=== PATIENT | male | born 1965 | race Caucasian/White ===

== ENCOUNTER 2018-08-12 07:28 | Inpatient (IN) | payer SELFPAY ==
[~2018-08-12] VITALS: Ht 185.4 cm; Wt 97.1 kg
[2018-08-12] MEDS ORDERED: SODIUM CHLORIDE 0.9% 1,000 ML IV ONE (07:42)
[2018-08-12] MEDS ORDERED: ONDANSETRON HCL 4MG/2ML INJ IV STA (07:42)
[2018-08-12] MEDS ORDERED: FAMOTIDINE 20MG/2ML VIAL IV ONE (07:45)
[2018-08-12] MEDS ORDERED: LEVETIRACETAM 500MG PREMIX 100 ML IV ONE (08:00)
[2018-08-12] MEDS ORDERED: LEVETIRACETAM 500MG TABLET PO ONE (08:00)
[2018-08-12 08:05] LABS: EOSINOPHILS % 0.4 % (0.0-5.0); HEMATOCRIT. 45.6 % (42.0-52.0); HEMOGLOBIN. 15.5 g/dL (14.0-18.0); MEAN CORPUSCULAR HEMOGLOBIN 30.8 pg (28.0-32.0); MEAN CORPUSCULAR VOLUME 90.6 fL (80.0-94.0); MEAN PLATELET VOLUME 7.4 fl (7.4-10.4); MONOCYTES % 6.6 % (2.0-8.0); PLATELET 358 x1000/uL (130-400); RED BLOOD CELL COUNT 5.04 mill/uL (4.7-6.1); RED CELL DISTRIBUTION WIDTH 15.7 % (11.6-14.6)
[2018-08-12 08:11] LABS: INR 1.1; PARTIAL THROMBOPLASTIN TIME 21.7 sec (23.4-31.0); PROTHROMBIN TIME 10.7 sec (9.1-11.1)
[2018-08-12 08:14] LABS: CHLORIDE 94 mEq/L (98-107)
[2018-08-12] MEDS ORDERED: KETOROLAC 30MG/ML VIAL IV ONE (08:30)
[2018-08-12 08:37] LABS: ETHANOL BLOOD 207 mg/dL
[2018-08-12] MEDS ORDERED: LORAZEPAM 2MG/ML CPJ IV ONE (08:45)
[2018-08-12 10:50] LABS: CLARITY URINE CLEAR (CLEAR); COLOR URINE YELLOW (YELLOW); KETONES URINE NEGATIVE (NEGATIVE); LEUKOCYTE ESTERASE URINE NEGATIVE (NEGATIVE); NITRITE URINE NEGATIVE (NEGATIVE); OCCULT BLOOD URINE NEGATIVE (NEGATIVE); PROTEIN URINE TRACE (NEGATIVE); SPECIFIC GRAVITY URINE 1.011 (1.005-1.030); UROBILINOGEN URINE 0.2 E.U./dL (0.2-1.0)
[2018-08-12 11:00] LABS: *COCAINE SCREEN URINE NEGATIVE (NEGATIVE); METHADONE URINE SCREEN NEGATIVE (NEGATIVE); OPIATES URINE SCREEN NEGATIVE (NEGATIVE)
[2018-08-12 11:01] LABS: CANNABINOID URINE SCREEN PRESUMTIVE POSITIVE (NEGATIVE); PHENCYCLIDINE URINE SCREEN NEGATIVE (NEGATIVE)
[2018-08-12] MEDS ORDERED: DOCUSATE SODIUM 100MG CAPSULE PO PRN (11:15)
[2018-08-12] MEDS ORDERED: IPRATROPIUM/ALBUTEROL 0.5-3(2.5)MG/3ML NEB INH PRN (11:15)
[2018-08-12] MEDS ORDERED: GUAIFENESIN 200MG/10ML SUGAR FREE UDC PO PRN (11:15)
[2018-08-12] MEDS ORDERED: ACETAMINOPHEN 325MG TABLET PO PRN (11:15)
[2018-08-12] MEDS ORDERED: CLONIDINE 0.1MG TABLET PO PRN (11:15)
[2018-08-12] MEDS ORDERED: MAGNESIUM/ALUMINUM HYDROXIDE/SIMETHICONE 30ML UDC PO PRN (11:15)
[2018-08-12] MEDS ORDERED: HYDROCODONE/ACETAMINOPHEN 5/325MG TABLET PO PRN (11:15)
[2018-08-12] MEDS ORDERED: NA PHOS,M-B/NA PHOS,DI-BA ENEMA 118ML PR PRN (11:15)
[2018-08-12 11:17] LABS: *AMPHETAMINES SCREEN URINE NEGATIVE (NEGATIVE); *BARBITURATES SCREEN URINE NEGATIVE (NEGATIVE); *BENZODIAZEPINES SCREEN URINE PRESUMTIVE POSITIVE (NEGATIVE)
[2018-08-12 11:25] VITALS: BP 126/74
[2018-08-12 12:55] VITALS: BP 126/74
[2018-08-12] MEDS ORDERED: DEXTROSE 50% WATER 50ML SYRINGE IV PRN (13:15)
[2018-08-12] MEDS: INSULIN LISPRO 100 UNITS/ML SUBCUT SCH ×3 (13:30→21:00)
[2018-08-12] MEDS: ENOXAPARIN 40MG/0.4ML SYR SUBCUT SCH (13:30)
[2018-08-12] MEDS: BLOOD SUGAR DIAGNOSTIC STRIP TEST SCH ×3 (13:30→20:47)
[2018-08-12] MEDS ORDERED: MVI, ADULT NO.1 10 ML, FOLIC ACID 1 MG, THIAMINE HCL 100 MG in SODIUM CHLORIDE 0.9% 1,0... IV NR ×4 (14:30)
[2018-08-12 14:45] LABS: CHLORIDE 99 mEq/L (98-107)
[2018-08-12] MEDS: ONDANSETRON HCL 4MG/2ML INJ IV PRN (14:45)
[2018-08-12] MEDS: LORAZEPAM 2MG/ML CPJ IV PRN (14:46)
[2018-08-12 16:47] VITALS: BP 130/91
[2018-08-12] MEDS: DIPHENHYDRAMINE 50MG/ML VIAL IV PRN (17:21)
[2018-08-12] MEDS ORDERED: INSULIN LISPRO 100 UNITS/ML SUBCUT SCH (17:50)
[2018-08-12 20:21] VITALS: BP 156/75
[2018-08-12] MEDS: LEVETIRACETAM 500MG TABLET PO SCH (20:47)
[2018-08-12] MEDS ORDERED: INFLUENZA VIRUS VACCINE(AFLURIA) 0.5ML SYR IM ONE (21:00)
[2018-08-13] VITALS: BP 126/63
[2018-08-13 04:00] VITALS: BP 153/79
[2018-08-13] MEDS: LORAZEPAM 2MG/ML CPJ IV PRN ×5 (04:39→21:02)
[2018-08-13] MEDS: BLOOD SUGAR DIAGNOSTIC STRIP TEST SCH ×3 (06:21→21:15)
[2018-08-13] MEDS: DEXT 5%/0.45% NACL 1000ML 1,000 ML IV SCH ×2 (07:29→16:58)
[2018-08-13] MEDS: INSULIN LISPRO 100 UNITS/ML SUBCUT SCH ×3 (07:50→21:00)
[2018-08-13 08:00] VITALS: BP 148/78
[2018-08-13] MEDS: ASPIRIN 81MG EC TABLET PO SCH (08:35)
[2018-08-13] MEDS: THIAMINE HCL 100MG TABLET PO SCH (08:35)
[2018-08-13] MEDS: LEVETIRACETAM 500MG TABLET PO SCH ×2 (08:35→21:02)
[2018-08-13] MEDS: ENOXAPARIN 40MG/0.4ML SYR SUBCUT SCH (08:36)
[2018-08-13] MEDS: ONDANSETRON HCL 4MG/2ML INJ IV PRN (11:41)
[2018-08-13 12:00] VITALS: BP 159/86
[2018-08-13 16:00] VITALS: BP 149/78
[2018-08-13 20:24] VITALS: BP 161/86
[2018-08-14] VITALS (7 sets, daily range): BP systolic 140–164; BP diastolic 75–94
[2018-08-14] MEDS: DEXT 5%/0.45% NACL 1000ML 1,000 ML IV SCH ×4 (03:20→23:15)
[2018-08-14] MEDS: BLOOD SUGAR DIAGNOSTIC STRIP TEST SCH ×4 (06:25→21:25)
[2018-08-14] MEDS: INSULIN LISPRO 100 UNITS/ML SUBCUT SCH ×4 (07:50→21:30)
[2018-08-14] MEDS: ASPIRIN 81MG EC TABLET PO SCH (09:25)
[2018-08-14] MEDS: LORAZEPAM 2MG/ML CPJ IV PRN ×2 (09:25→14:28)
[2018-08-14] MEDS: ENOXAPARIN 40MG/0.4ML SYR SUBCUT SCH (09:25)
[2018-08-14] MEDS: LEVETIRACETAM 500MG TABLET PO SCH ×2 (09:25→21:30)
[2018-08-14] MEDS: THIAMINE HCL 100MG TABLET PO SCH (09:25)
[2018-08-14] MEDS: MORPHINE SULFATE 4 MG/ML CPJ (NOT FOR IM USE) IV PRN (12:55)
[2018-08-14] MEDS ORDERED: FOLIC ACID 1 MG, THIAMINE HCL 100 MG, MVI, ADULT NO.1 10 ML in DEXTROSE 5% WATER 1,000 ML IV ONE ×4 (15:30)
[2018-08-15] VITALS: BP 145/78
[2018-08-15 04:00] VITALS: BP 125/80
[2018-08-15 06:00] VITALS: BP 116/80
[2018-08-15] MEDS: BLOOD SUGAR DIAGNOSTIC STRIP TEST SCH ×4 (07:20→21:00)
[2018-08-15] MEDS: INSULIN LISPRO 100 UNITS/ML SUBCUT SCH ×4 (07:50→21:00)
[2018-08-15 09:11] LABS: HIV SCREEN 4G Non Reactive (Non Reactive)
[2018-08-15] MEDS: ASPIRIN 81MG EC TABLET PO SCH (10:00)
[2018-08-15] MEDS: LEVETIRACETAM 500MG TABLET PO SCH ×2 (10:00→22:07)
[2018-08-15] MEDS: LORAZEPAM 2MG/ML CPJ IV PRN ×3 (10:00→19:48)
[2018-08-15] MEDS: THIAMINE HCL 100MG TABLET PO SCH (10:01)
[2018-08-15] MEDS: ENOXAPARIN 40MG/0.4ML SYR SUBCUT SCH (10:01)
[2018-08-15] MEDS: DEXT 5%/0.45% NACL 1000ML 1,000 ML IV SCH (10:07)
[2018-08-15 10:32] LABS: BASOPHILS % 0.3 % (0.0-2.0); HEMATOCRIT. 41.1 % (42.0-52.0); HEMOGLOBIN. 14.3 g/dL (14.0-18.0); LYMPHOCYTES % 21.6 % (20.0-50.0); MEAN CORPUSCULAR HEMOGLOBIN 31.4 pg (28.0-32.0); MEAN CORPUSCULAR VOLUME 90.2 fL (80.0-94.0); MEAN PLATELET VOLUME 7.7 fl (7.4-10.4); MONOCYTES % 6.3 % (2.0-8.0); NEUTROPHILS % 65.8 % (40.0-76.0); PLATELET 286 x1000/uL (130-400); RED BLOOD CELL COUNT 4.56 mill/uL (4.7-6.1); RED CELL DISTRIBUTION WIDTH 15.1 % (11.6-14.6)
[2018-08-15 11:05] LABS: CHLORIDE 99 mEq/L (98-107)
[2018-08-15] MEDS ORDERED: MVI, ADULT NO.1 10 ML, FOLIC ACID 1 MG, THIAMINE HCL 100 MG in SODIUM CHLORIDE 0.9% 1,0... IV NR ×4 (13:30)
[2018-08-15] MEDS: MORPHINE SULFATE 4 MG/ML CPJ (NOT FOR IM USE) IV PRN (15:14)
[2018-08-15 16:00] VITALS: BP 127/83
[2018-08-15] MEDS: DIPHENHYDRAMINE 50MG/ML VIAL IV PRN (19:48)
[2018-08-16] MEDS: INSULIN LISPRO 100 UNITS/ML SUBCUT SCH ×2 (07:50→12:50)
[2018-08-16] MEDS: LEVETIRACETAM 500MG TABLET PO SCH (08:20)
[2018-08-16] MEDS: ASPIRIN 81MG EC TABLET PO SCH (08:20)
[2018-08-16] MEDS: THIAMINE HCL 100MG TABLET PO SCH (08:20)
[2018-08-16] MEDS: LORAZEPAM 2MG/ML CPJ IV PRN ×3 (08:20→16:05)
[2018-08-16] MEDS: ENOXAPARIN 40MG/0.4ML SYR SUBCUT SCH (08:20)
[2018-08-16] MEDS: DEXT 5%/0.45% NACL 1000ML 1,000 ML IV SCH (08:28)
[2018-08-16 10:10] LABS: BASOPHILS % 0.4 % (0.0-2.0); EOSINOPHILS % 6.5 % (0.0-5.0); HEMATOCRIT. 40.2 % (42.0-52.0); HEMOGLOBIN. 13.7 g/dL (14.0-18.0); LYMPHOCYTES % 20.6 % (20.0-50.0); MEAN CORPUSCULAR HEMOGLOBIN 31.1 pg (28.0-32.0); MEAN CORPUSCULAR VOLUME 91.2 fL (80.0-94.0); MEAN PLATELET VOLUME 7.6 fl (7.4-10.4); MONOCYTES % 6.3 % (2.0-8.0); NEUTROPHILS % 66.2 % (40.0-76.0); PLATELET 259 x1000/uL (130-400); RED BLOOD CELL COUNT 4.41 mill/uL (4.7-6.1); RED CELL DISTRIBUTION WIDTH 15.5 % (11.6-14.6)
[2018-08-16 10:55] LABS: CHLORIDE 98 mEq/L (98-107)
[2018-08-16] MEDS: BLOOD SUGAR DIAGNOSTIC STRIP TEST SCH (12:20)
[2018-08-16 13:16] VITALS: BP 108/63
[2018-08-16 14:26] VITALS: BP 108/63
[2018-08-17] MEDS ORDERED: KEPPSOL GT (15:43)
== END 2018-08-16 17:41 | disposition left against medical advice (07) | DRG 243 ==
LOC: ER 07:38 → 6WST 08:47 → EDBEDREQ 08:49 → ENRESERV 10:18 → 6WST 13:08 → UNDODISIN 17:50
PROVIDERS: ADMIT Internal Medicine; ATTEND Internal Medicine
DX: K21.9 Gastro-esophageal reflux disease without esophagitis (principal); E11.9 Type 2 diabetes mellitus without complications; E86.0 Dehydration; G40.509 Epileptic seizures related to external causes, not intractable, without status epilepticus; I10 Essential (primary) hypertension; F10.229 Alcohol dependence with intoxication, unspecified; Y90.9 Presence of alcohol in blood, level not specified; F10.239 Alcohol dependence with withdrawal, unspecified; Z99.3 Dependence on wheelchair; Z88.0 Allergy status to penicillin; Z88.8 Allergy status to other drugs, medicaments and biological substances; Z79.4 Long term (current) use of insulin; Z79.899 Other long term (current) drug therapy
CPT/HCPCS: 36415; 71045; 78582; 80048; 80305; 82962; 83735; 83880; 84484; 87389; 90686; 93005; 93970; 96365; 96375; 97162; 99291; A6261; A9558; C1893; G0482; J1200; J1650; J1815; J1885; J1953; J2060; J2270; J2405; J3411; J3490; J7030; J7070

== ENCOUNTER 2018-08-17 07:19 | Inpatient (IN) | payer SELFPAY ==
[~2018-08-17] VITALS: Ht 185.4 cm; Wt 94.3 kg
[2018-08-17] MEDS ORDERED: KETOROLAC 30MG/ML VIAL IV STA (07:41)
[2018-08-17] MEDS ORDERED: SODIUM CHLORIDE 0.9% 1,000 ML IV ONE (07:41)
[2018-08-17] MEDS ORDERED: ONDANSETRON HCL 4MG/2ML INJ IV STA (07:41)
[2018-08-17] MEDS ORDERED: CHLORDIAZEPOXIDE 25MG CAPSULE PO ONE (07:45)
[2018-08-17] MEDS ORDERED: LORAZEPAM 2MG/ML CPJ IV ONE (07:45)
[2018-08-17] MEDS ORDERED: FAMOTIDINE 20MG/2ML VIAL IV ONE (08:00)
[2018-08-17 08:22] LABS: BASOPHILS % 0.4 % (0.0-2.0); EOSINOPHILS % 5.6 % (0.0-5.0); HEMATOCRIT. 44.6 % (42.0-52.0); HEMOGLOBIN. 15.6 g/dL (14.0-18.0); LYMPHOCYTES % 21.8 % (20.0-50.0); MEAN CORPUSCULAR HEMOGLOBIN 31.5 pg (28.0-32.0); MEAN CORPUSCULAR VOLUME 90.3 fL (80.0-94.0); MEAN PLATELET VOLUME 7.4 fl (7.4-10.4); MONOCYTES % 6.7 % (2.0-8.0); NEUTROPHILS % 65.5 % (40.0-76.0); PLATELET 326 x1000/uL (130-400); RED BLOOD CELL COUNT 4.94 mill/uL (4.7-6.1)
[2018-08-17 08:23] LABS: PROTHROMBIN TIME 10.2 sec (9.1-11.1)
[2018-08-17 08:27] LABS: CHLORIDE 98 mEq/L (98-107)
[2018-08-17] MEDS ORDERED: ONDANSETRON HCL 4MG/2ML INJ IV PRN (11:00)
[2018-08-17] MEDS ORDERED: CLONIDINE 0.1MG TABLET PO PRN (11:00)
[2018-08-17] MEDS ORDERED: IPRATROPIUM/ALBUTEROL 0.5-3(2.5)MG/3ML NEB INH PRN (11:00)
[2018-08-17] MEDS ORDERED: NA PHOS,M-B/NA PHOS,DI-BA ENEMA 118ML PR PRN (11:00)
[2018-08-17] MEDS ORDERED: MAGNESIUM/ALUMINUM HYDROXIDE/SIMETHICONE 30ML UDC PO PRN (11:00)
[2018-08-17] MEDS ORDERED: GUAIFENESIN 200MG/10ML SUGAR FREE UDC PO PRN (11:00)
[2018-08-17] MEDS ORDERED: KETOROLAC 15MG/ML VIAL IV PRN (11:00)
[2018-08-17] MEDS ORDERED: TRAMADOL 50MG TABLET PO PRN (11:00)
[2018-08-17] MEDS ORDERED: ACETAMINOPHEN 325MG TABLET PO PRN (11:00)
[2018-08-17] MEDS ORDERED: ZOLPIDEM TARTRATE 5MG TABLET PO PRN (11:00)
[2018-08-17 12:18] LABS: *AMPHETAMINES SCREEN URINE NEGATIVE (NEGATIVE)
[2018-08-17 12:30] LABS: *BARBITURATES SCREEN URINE NEGATIVE (NEGATIVE); *BENZODIAZEPINES SCREEN URINE PRESUMTIVE POSITIVE (NEGATIVE); *COCAINE SCREEN URINE NEGATIVE (NEGATIVE); CANNABINOID URINE SCREEN PRESUMTIVE POSITIVE (NEGATIVE); METHADONE URINE SCREEN NEGATIVE (NEGATIVE); OPIATES URINE SCREEN NEGATIVE (NEGATIVE); PHENCYCLIDINE URINE SCREEN NEGATIVE (NEGATIVE)
[2018-08-17 15:12] VITALS: BP 112/59
[2018-08-17] MEDS ORDERED: KEPPSOL GT (15:43)
[2018-08-17 16:00] VITALS: BP 115/59
[2018-08-17] MEDS: LORAZEPAM 0.5MG TABLET PO PRN ×2 (17:47→23:27)
[2018-08-17] MEDS ORDERED: MVI, ADULT NO.1 10 ML, FOLIC ACID 1 MG, THIAMINE HCL 100 MG in SODIUM CHLORIDE 0.9% 1,0... IV ONE ×4 (18:00)
[2018-08-17 20:00] VITALS: BP 130/62
[2018-08-17] MEDS: METOPROLOL TARTRATE 25MG TABLET PO SCH (20:41)
[2018-08-18] VITALS: BP 153/63
[2018-08-18] MEDS: SODIUM CHLORIDE 0.9% 1,000 ML IV SCH ×2 (02:00→08:40)
[2018-08-18 04:00] VITALS: BP 115/69
[2018-08-18] MEDS: METOPROLOL TARTRATE 25MG TABLET PO SCH (09:00)
[2018-08-18] MEDS ORDERED: PANTOPRAZOLE SODIUM 40 MG/VIAL IV SCH (09:00)
[2018-08-18] MEDS: LORAZEPAM 0.5MG TABLET PO PRN (10:42)
== END 2018-08-18 11:20 | disposition left against medical advice (07) | DRG 282 ==
LOC: ER 07:32 → 5WST 10:02 → ENRESERV 13:27
PROVIDERS: ADMIT Internal Medicine; ATTEND Internal Medicine
DX: K85.20 Alcohol induced acute pancreatitis without necrosis or infection (principal); E83.51 Hypocalcemia; F10.229 Alcohol dependence with intoxication, unspecified; F12.10 Cannabis abuse, uncomplicated; Z53.21 Procedure and treatment not carried out due to patient leaving prior to being seen by health care provider; F17.210 Nicotine dependence, cigarettes, uncomplicated; E11.9 Type 2 diabetes mellitus without complications; I10 Essential (primary) hypertension; Y90.6 Blood alcohol level of 120-199 mg/100 ml; R06.89 Other abnormalities of breathing; Z88.0 Allergy status to penicillin; Z88.8 Allergy status to other drugs, medicaments and biological substances; Z71.41 Alcohol abuse counseling and surveillance of alcoholic; Z71.51 Drug abuse counseling and surveillance of drug abuser
CPT/HCPCS: 36415; 74176; 80061; 80305; 82962; 83036; 93005; 96374; 96375; 99285; G0482; J1885; J2060; J2405; J3411; J3490; J7030